=== PATIENT | male | born 1980 | race Caucasian/White ===

== ENCOUNTER 2017-09-13 05:44 | Emergency (ER) | payer OTHER ==
[2017-09-13 05:55] VITALS: BP 137/96
[2017-09-13] MEDS ORDERED: SKIN ADHESIVE (DERMABOND) 1 EACH TP ONE (05:59)
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
== END 2017-09-13 06:13 | disposition home or self-care (01) ==
LOC: EEVIPCON 05:44
PROC: 0HQ1XZZ Repair Face Skin, External Approach (ICD-10-PCS; principal; 2017-09-13)
DX: S01.111A Laceration without foreign body of right eyelid and periocular area, initial encounter (principal); Y04.0XXA Assault by unarmed brawl or fight, initial encounter; Y92.149 Unspecified place in prison as the place of occurrence of the external cause; Y99.8 Other external cause status